=== PATIENT | female | born 1955 | race African-American/Black ===

== ENCOUNTER 2016-12-24 19:06 | Inpatient (IN) | payer OTHER ==
[~2016-12-24] VITALS: Ht 170.2 cm; Wt 81.6 kg
--- NOTE | ~2016-12-24 | DS ---
Unit #: [id number] #: [id number] Patient: KANDY STEINBERG [id number] [address] [address] [id number] I MR#: [id number] NAME: KANDY STEINBERG ROOM: [facility] Age: 61 Sex: F Admission Date: 12/24/2016 : 1955 Discharge Date: Attending Physician: Aaron Knight M.D. Primary Care Physician: [facility]. DISCHARGE SUMMARY DISCHARGE DIAGNOSES 1. Acute on chronic recurrent pancreatitis. 2. Acute kidney injury. 3. Left chest pain from atelectasis. No rib fractures. 4. Chronic diastolic heart failure with ejection fraction 50% to 55%. 5. History of chronic obstructive pulmonary disease. 6. Smoking. 7. Diabetes mellitus type 2, uncontrolled. 8. History of gastritis. 9. Hypertension. 10. History of hepatic steatosis. 11. Constipation. 12. Mild protein malnutrition. CONSULTATIONS None. PROCEDURES None. DIAGNOSTIC STUDIES LABORATORY: Glucose 312, sodium 138, potassium 4.3, creatinine 1.6, albumin 2.8. WBC 10.8, hemoglobin 11.5. IMAGING: X-ray of the left chest area shows atelectasis. No rib fracture. CT of the abdomen and pelvis shows mild acute pancreatitis. No evidence of pseudocyst. No necrosis. ALLERGIES Ibuprofen. DISCHARGE MEDICATIONS 1. Coreg 12.5 p.o. b.i.d. 2. Norvasc 5 mg p.o. b.i.d. 3. Lortab 5 mg q.4 p.r.n. pain. 4. Potassium 20 mEq p.o. daily. 5. Glyburide 10 mg p.o. b.i.d. 6. Colace 100 p.o. b.i.d. [id number] p.r.n. constipation. HOSPITAL COURSE A 61-year-old admitted because of abdominal pain. Abdominal pain likely from acute pancreatitis. She has chronic pancreatitis. Her liver enzymes and amylase and lipase are normal. CT Unit #: [id number] #: [id number] Patient: KANDY STEINBERG shows mild pancreatitis. Currently tolerating diet okay. Continue with low-fat diet at home. I gave a few pills of Lortab. Acute kidney injury likely from dehydration and medications. I am going to hold her lisinopril and Lasix. Follow with PCP. I encouraged her to drink p.o. fluids. Left chest pain likely musculoskeletal. No rib fracture. It shows atelectasis on the x-ray. Constipation. MiraLAX and Colace given. Continue with Colace [id number] at home. DISPOSITION Discharge home. FOLLOWUP With family physician for abdominal pain and pancreatitis. Dictated by... Dannielle Ambrose M.D. KARL/nicole TD: 12/26/2016 14:13 JOB #: [id number] DISCHARGE SUMMARY Page 1 of 1 X Dannielle Ambrose MD X DISCHARGE SUMMARY
--- NOTE | ~2016-12-24 | HP ---
Unit #: [id number] #: [id number] Patient: KANDY STEINBERG [id number] [address] [address] [id number] I MR#: [id number] NAME: KANDY STEINBERG ROOM: [facility] Age: 61 Sex: F Admission Date: 12/24/2016 : 1955 Attending Physician: Aaron Knight M.D. Primary Care Physician: [facility]. HISTORY AND PHYSICAL CHIEF COMPLAINT Abdominal pain. DISCUSSION This is a 61-year-old -Citizen Of [place] female with a past medical history significant for history of type 2 diabetes, recurrent pancreatitis, history of coronary artery disease, diastolic CHF, COPD, gastritis, hypertension, hepatic steatosis, history of cholelithiasis with previous lap cholecystectomy. She presented to emergency room with chief complaint of abdominal pain which she described as she had been having abdominal pain since 25 of October and again it is getting progressively worse and she says she vomited last night and came to the emergency room. Today on workup, found to have white count 16,000, lipase 58. A CT scan consistent with mild pancreatitis and eventually had been admitted. She denies fever, chills, chest pain, cough, shortness of breath, or any other complaint. PAST MEDICAL HISTORY 1. History of diabetes. 2. Hypertension. 3. Recurrent pancreatitis. 4. Active tobacco abuse. 5. COPD. 6. History of coronary artery disease/history of angina status post cath in April 2016. Shows mid RCA 50-60%, OM 70% stenosis. 7. Diastolic CHF, ejection fraction 50-55%. 8. History of gastritis. 9. Hepatic steatosis. PAST SURGICAL HISTORY 1. History of ERCP in the past. 2. Sigmoidoscopy. 3. Colonoscopy. 4. History of cardiac catheterization in April 2016 shows mid RCA 50-60%, OM 70%. 5. History of cholelithiasis, status post lap cholecystectomy in the past. SOCIAL HISTORY She smoked one pack daily. She denies alcohol, she denies illicit drug use. FAMILY HISTORY Remarkable - diabetes in mother. Unit #: [id number] #: [id number] Patient: KANDY STEINBERG ALLERGY No known drug allergy. MEDICATIONS Medication from home is followin. Glucovance 5/500, 2 tablets twice a day. 2. Coreg 12.5 twice a day. 3. Zestril 10 mg daily. 4. Lasix 20 mg daily. 5. Potassium chloride 20 mEq daily. 6. Amlodipine 5 mg daily. REVIEW OF SYSTEMS All review of system negative except History of Present Illness. PHYSICAL EXAMINATION On examination, middle aged female lying in the bed comfortably, currently not in any distress. VITAL SIGNS: Current vitals are following - temperature 98.3, heart rate 82, respiratory rate 18, blood pressure 159/71, oxygen is 100% on room air. GENERAL: On general examination, she is alert, awake, oriented x3, comfortable, not in any distress. HEENT: On HEENT examination, pupils equal, reactive to light and accommodation. Head is normocephalic, atraumatic. NECK: Supple. No JVD, no thyromegaly. LUNGS: Clear to auscultation. No rhonchi, no wheezing. HEART: S1, S2. Regular rate and rhythm. No murmur. ABDOMEN: Soft. Mild upper abdominal tenderness positive. No guarding, no rigidity. EXTREMITIES: Inspection normal. No cyanosis, no clubbing, no edema. NEURO: No focal neurologic deficit. Cranial nerves II-XII intact. Power 5/5 on both sides. SKIN: Warm and dry. PSYCH: Normal mood/affect. DIAGNOSTIC STUDIES LABORATORY: Laboratory workup is following - troponin is less than 0.05. Chemistry - sodium 133, potassium 4.5, chloride 99, glucose 335, BUN 22, creatinine 1.4, albumin 3.2, lipase 58, alkaline phos. 98, otherwise normal LFT. UA negative. White count 16, hemoglobin 12, hematocrit 38, platelets 332. CT scan shows mild pancreatitis. ASSESSMENT AND PLAN 1. Acute on chronic recurrent pancreatitis. Will place the patient on clear liquid diet, IV fluids, IV Protonix, Zofran, morphine for pain control. 2. History of coronary artery disease, nonobstructive, status post cath in April 2016. Shows mid RCA 50-60%, OM 70%. 3. Diastolic CHF with ejection fraction 50-55%. 4. History of COPD with tobacco abuse. 5. Diabetes. Unit #: [id number] #: [id number] Patient: KANDY STEINBERG 6. History of gastritis. 7. Hypertension. 8. Hepatic steatosis. 9. DVT prophylaxis. Will place the patient on Lovenox. Dictated by Frank Smith/musa TD: 12/25/2016 11:54 JOB #: [id number] HISTORY AND PHYSICAL Page 1 of 1 X X HISTORY AND PHYSICAL
--- NOTE | ~2016-12-24 | EKG ---
PATIENT: KANDY STEINBERG UNIT #: [id number] Ventricular Rate: 70 BPM Atrial Rate: 70 BPM P-R Interval: 124 ms QRS Duration: 86 ms Q-T Interval: 392 ms QTC Calculation(Bezet): 423 ms P Dimock: 53 degrees Calculated R Dimock: 10 degrees Calculated T Dimock: 57 degrees Diagnosis Line: Normal sinus rhythm Diagnosis Line: Possible Left atrial enlargement Diagnosis Line: Borderline ECG Diagnosis Line: When compared with ECG of 11-MAY-2016 06:02, Diagnosis Line: No significant change was found Diagnosis Line: Confirmed by FADY MONTIEL MD ([id number]) on Diagnosis Line: 12/25/2016 5:06:57 PM INTERPRETING MD: KAREN
--- NOTE | ~2016-12-24 | CT2 ---
[facility] A Service of [facility] RADIOLOGY TEXT RESULTS PATIENT: KANDY STEINBERG LOCATION: [place] [address] : [birth year] UNIT #: [id number] AGE: [address]: Aaron Knight MD SEX: F ORDER DR: [id number] [place] [id number] [facility]. [place], [place] [address] [id number] I MR#: [id number] Acc #: [id number] NAME: KANDY STEINBERG : 1955 SEX: F STUDY DATE/TIME: 12/24/2016 22:18 UNIT: [facility] ROOM: [facility] STUDY DESCRIPTION: CT Abd and Pelv W Cont Attending Physician: Aaron Knight M.D. Ordering Physician: Raúl Alberts M.D. Primary Care Physician: [facility] MEDICAL IMAGING REPORT This report is preliminary unless electronic signature is present EXAM CT abdomen and pelvis with contrast INDICATIONS Left upper quadrant abdominal pain since October 25, [address]ED[address] Contrast-enhanced CT of the abdomen and pelvis. This CT exam was performed with one or more of the following radiation dose reduction techniques: automatic exposure control, adjustment of mA and/or kV according to patient size, and iterative reconstruction. COMPARISON 12/24/2015 FINDINGS Abdomen with contrast: Included lung bases are clear. Gastroesophageal reflux. The liver, spleen, kidneys, adrenal glands are unremarkable. Previous cholecystectomy. There is haziness and obscuration of fat planes around the head of the pancreas. No peripancreatic fluid collection or evidence for necrosis. Bowel loops are nondilated and appendix is normal. Pelvis with contrast: Previous hysterectomy. No pelvic mass or fluid. No aggressive appearing bone lesion. IMPRESSION Mild acute pancreatitis. Correlate with pancreatic enzyme levels. No evidence for pseudocyst or necrosis. Dictated by... Eder Carballo M.D. [facility] A Service [facility] RADIOLOGY TEXT RESULTS PATIENT: KANDY STEINBERG LOCATION: [facility] : [birth year] UNIT #: [id number] AGE: [address]: Aaron Knight MD SEX: F ORDER DR: THIS IS AN ELECTRONICALLY VERIFIED REPORT Eder Carballo M.D. at 12/26/2016 10:06 PM EED/to TD: 12/25/2016 13:21 JOB #: [id number] MEDICAL IMAGING REPORT Page 1 of 1 COPY
--- NOTE | ~2016-12-24 | CR212 ---
[facility] A Service of [facility] RADIOLOGY TEXT RESULTS PATIENT: KANDY STEINBERG LOCATION: [facility] 558-01 : [birth year] UNIT #: [id number] AGE: [address]: Aaron Knight MD SEX: F ORDER DR: [id number] [facility] [address] [facility]. [place], [place] [address] [id number] I MR#: [id number] Acc #: [id number] NAME: KANDY STEINBERG : 1955 SEX: F STUDY DATE/TIME: 12/25/2016 17:12 UNIT: [facility] ROOM: [facility] STUDY DESCRIPTION: CR Ribs Unilateral 2 View Lt Attending Physician: Aaron Knight M.D. Ordering Physician: Dannielle Amrbose M.D. Primary Care Physician: [facility]. MEDICAL IMAGING REPORT This report is preliminary unless electronic signature is present EXAM PA chest with AP and oblique views of the left ribs. COMPARISON CT abdomen and pelvis dated December 24, 2016, as well as 2 views of the chest dated May 10, 2016. INDICATION 61-year-old female with left-sided rib pain for 2 weeks at which time the patient fell and hit the side of the side of her chest on the edge of pool two weeks ago. FINDINGS No evidence of a pneumothorax. There is no pleural effusion. There are bibasilar opacities which would favor atelectasis given that none were seen on CT abdomen and pelvis performed yesterday. Cardiomediastinal silhouette is within normal limits. No evidence of rib fracture. IMPRESSION No evidence of a rib fracture. Increased bibasilar opacities with -poor inspiratory effort. Given that the lungs were clear on CT abdomen and pelvis performed yesterday, these findings are most consistent with atelectasis. Correlation to exclude signs of pneumonia recommended. Dictated by... Kenny Hi M.D. THIS IS AN ELECTRONICALLY VERIFIED REPORT Kenny Hi M.D. at 01/01/2017 6:36 PM ALYSSA/vikram [facility]. [facility] A Service of [facility] RADIOLOGY TEXT RESULTS PATIENT: KANDY STEINBERG LOCATION: [facility] 558-01 : 57 UNIT #: [id number] AGE: [address]: Aaron Knight MD SEX: F ORDER DR: TD: 12/26/2016 00:22 JOB #: [id number] MEDICAL IMAGING REPORT Page 1 of 1 COPY
[~2016-12-24 19:06] MED LIST: ACETAMINOPHEN PO; ACETAMINOPHEN650 M3 PO; ALBUTEROL20 ml INH; AMLODIPINE BESYL5 MG PO; ATORVASTATIN CA80 MG PO; AVANDIA PO; BAYER CHEWABLE81 MG PO; BENADRYL25 MG PO; BUSPAR5 M1 PO; CARVEDILOL12.5 MG PO; CELEBREX PO; CILOXAN5 ML OP; CLARITIN10 MG PO; COLACE PO; DICLOFENAC PO; GLUCOPHAGE500 M1 PO; GLUCOPHAGE500 MG PO; GLUCOVANCE 5/501 TA1 PO; GLUCOVANCE 5/501 TA2 PO; GLYBURIDE-METFO1 TA4 PO; GLYNASE PO; HYDRALAZINE HCL25 MG PO; HYDROCODON-ACE1 EAC9 PO; INDOMETHACIN50 MG PO; JANUVIA100 MG PO; K-DUR20 ME2 PO; KEFLEX PO; KEFLEX500 M2 PO; KETOROLAC TROMET5 ML OP; LANTUS SOLOSTAR3 ML; LANTUS100 U/ML SUBQ; LASIX20 MG PO; LEVAQUIN PO; LEVEMIR FL100 UNIT/1 SQ; LISINOPRIL20 MG PO; LORTAB 5/500 TA1 TA1 PO; MACROBID100 MG DOB; METFORMIN PO; MIRALAX17 G1 PO; MIRALAX17 GM PO; NICOTINE T1 PATCH .2 TOP; NORCO 5/325 TAB1 TAB PO; NORCO1 TAB 10/3 PO; ONGLYZA5 MG PO; PEPCID AC20 M2 PO; PREDNISONE PO; PRILOSEC PO; PROTONIX PO; PYRIDIUM100 MG PO; REGLAN PO; ROBITUSSIN A-C S5 ML PO; SENNA S TABLET1 TAB PO; ULTRAM PO; VIBRAMYCIN100 M1 PO; VICODIN 5/500 T1 TAB PO; ZESTRIL10 M2 PO; ZITHROMAX1 G/PKT PO; ZOFRAN PO; ZYRTEC10 M2 PO
[2016-12-24 19:48] LABS: BASOPHIL# 0.1 X10e3 (0-0.3); BASOPHIL% 0.9 % (0-2.5); EOSINOPHIL# 0.2 X10e3 (0-0.7); EOSINOPHIL% 1.5 % (0.0-7.0); HEMATOCRIT 38.9 % (35.0-45.0); HEMOGLOBIN 12.7 gm/dL (12.0-16.0); LYMPHOCYTE% 18.7 % (17.0-45.0); MEAN CELL VOLUME 84.9 FL (83-96); MEAN CORPUSCULAR HEMOGLOBIN 27.8 PG (28-34); MEAN CORPUSCULAR HGB CONC 32.7 g/dL (30-36); MEAN PLATELET VOLUME 8.5 FL (6.5-11.5); MONOCYTE# 1.1 X10e3 (0-1.0); MONOCYTE% 6.8 % (3.0-12.0); NEUTROPHIL# 11.6 X10e3 (1.5-7.1); NEUTROPHIL% 72.1 % (40-75); PLATELET COUNT 332 X10e3 (140-420); RED BLOOD COUNT 4.58 X10e (3.90-5.30); RED CELL DISTRIBUTION WIDTH 14.3 % (11.0-15.5); WHITE BLOOD COUNT 16.1 X10e3 (4.0-10.5)
[2016-12-24 19:49] LABS: DIFF IND YES
[2016-12-24 20:01] LABS: URINE SOURCE CLEAN CATCH
[2016-12-24 20:04] LABS: PLATELET ESTIMATE NORMAL (NORMAL); RBC NORMAL YES
[2016-12-24 20:05] LABS: URINE APPEARANCE CLEAR; URINE BILIRUBIN NEG (NEG); URINE BLOOD 1+ (NEG); URINE COLOR YELLOW; URINE GLUCOSE >1000 MG/DL (NEG); URINE KETONE NEG (NEG); URINE LEUKOCYTE ESTERASE NEG (NEG); URINE NITRATE NEG (NEG); URINE PROTEIN 3+ (NEG); URINE SPECIFIC GRAVITY 1.021 (1.003-1.035); URINE UROBILINOGEN 0.2 MG/DL (NEG)
[2016-12-24 20:08] LABS: URINE BACTERIA AUWI NEG (NEGATIVE); URINE SQUAMOUS EPITHELIAL CELL OCC /[HPF]
[2016-12-24 20:10] LABS: ALBUMIN SERUM 3.2 g/dL (3.5-5.0); BILIRUBIN, DIRECT 0.1 mg/dL (0.0-0.2); BILIRUBIN,INDIRECT 0.5 mg/dL (0.0-0.9); BILIRUBIN,TOTAL 0.6 mg/dL (0.2-2.0); BUN/CREATININE RATIO 15.71; CALCIUM SERUM 8.9 mg/dL (8.4-10.2); CREATININE SERUM 1.4 mg/dL (0.6-1.4); GLOM FILT RATE Estimated 47.2 mL/min (>60); POTASSIUM 4.5 mmol/L (3.5-5.1); PROTEIN TOTAL SERUM 7.1 g/dL (6.0-8.3)
[2016-12-24 20:10] LABS: CULTURE INDICATED? NO
[2016-12-24 20:22] LABS: POC - CKMB 1.7 ng/mL (0.0-7.9); POC - TROPONIN <0.05 ng/mL (<=0.05)
[2016-12-24] MEDS ORDERED: K-DUR10 MEQ PO (23:06)
[2016-12-24] MEDS ORDERED: AMLODIPINE BESY10 MG PO (23:07)
[2016-12-24] MEDS ORDERED: GLUCOVANCE 5-51 EACH PO (23:08)
[2016-12-25 06:58] LABS: BASOPHIL# 0.1 X10e3 (0-0.3); BASOPHIL% 0.9 % (0-2.5); EOSINOPHIL# 0.3 X10e3 (0-0.7); EOSINOPHIL% 2.2 % (0.0-7.0); HEMOGLOBIN 11.7 gm/dL (12.0-16.0); LYMPHOCYTE# 3.3 X10e3 (1.0-3.5); LYMPHOCYTE% 26.1 % (17.0-45.0); MEAN CELL VOLUME 84.9 FL (83-96); MEAN CORPUSCULAR HEMOGLOBIN 28.5 PG (28-34); MEAN CORPUSCULAR HGB CONC 33.6 g/dL (30-36); MEAN PLATELET VOLUME 8.1 FL (6.5-11.5); MONOCYTE% 8.1 % (3.0-12.0); NEUTROPHIL# 7.9 X10e3 (1.5-7.1); NEUTROPHIL% 62.7 % (40-75); PLATELET COUNT 285 X10e3 (140-420); RED BLOOD COUNT 4.12 X10e (3.90-5.30); RED CELL DISTRIBUTION WIDTH 14.5 % (11.0-15.5); WHITE BLOOD COUNT 12.7 X10e3 (4.0-10.5)
[2016-12-25 07:04] LABS: DIFF IND NO
[2016-12-25 07:27] LABS: ALBUMIN SERUM 2.8 g/dL (3.5-5.0); ALKALINE PHOSPHATASE 82 U/L (32-92); ALT (SGPT) 9 U/L (10-40); AMYLASE 39 U/L (0-46); AST (SGOT) 9 U/L (10-42); BILIRUBIN,TOTAL <0.1 mg/dL (0.2-2.0); BLOOD UREA NITROGEN 20 mg/dL (9-23); BUN/CREATININE RATIO 14.28; CALCIUM SERUM 8.2 mg/dL (8.4-10.2); CARBON DIOXIDE 24 mmol/L (22-31); CHLORIDE 104 mmol/L (100-111); CREATININE SERUM 1.4 mg/dL (0.6-1.4); GLOM FILT RATE Estimated 47.2 mL/min (>60); GLUCOSE FASTING 257 mg/dL (70-110); LIPASE 35 U/L (22-51); POTASSIUM 4.6 mmol/L (3.5-5.1); PROTEIN TOTAL SERUM 6.3 g/dL (6.0-8.3); SODIUM 134 mmol/L (135-145)
[2016-12-26 07:14] LABS: HEMOGLOBIN 11.5 gm/dL (12.0-16.0); MEAN CELL VOLUME 85.3 FL (83-96); MEAN CORPUSCULAR HGB CONC 32.9 g/dL (30-36); MEAN PLATELET VOLUME 8.3 FL (6.5-11.5); RED BLOOD COUNT 4.1 X10e (3.90-5.30); RED CELL DISTRIBUTION WIDTH 14.3 % (11.0-15.5); WHITE BLOOD COUNT 10.8 X10e3 (4.0-10.5)
[2016-12-26 07:40] LABS: ALBUMIN SERUM 2.8 g/dL (3.5-5.0); BILIRUBIN,TOTAL 0.1 mg/dL (0.2-2.0); BUN/CREATININE RATIO 15.62; CALCIUM SERUM 8.4 mg/dL (8.4-10.2); CREATININE SERUM 1.6 mg/dL (0.6-1.4); GLOM FILT RATE Estimated 40.2 mL/min (>60); POTASSIUM 4.3 mmol/L (3.5-5.1); PROTEIN TOTAL SERUM 6.3 g/dL (6.0-8.3)
[2016-12-26] MEDS ORDERED: LORTAB 5-325 M1 EACH PO (14:00)
[2016-12-26] MEDS ORDERED: GLYBURIDE PO (14:01)
[2016-12-26] MEDS ORDERED: DOCUSATE SODIU100 MG PO (14:01)
== END 2016-12-26 15:13 | disposition home or self-care (01) | DRG 439 ==
LOC: CED 19:06 → CEDOF 23:30 → CED 23:30 → CEDOF 12-25 07:43 → C5B 12-25 07:43
PROVIDERS: Emergency Medicine; Internal Medicine
DX: K85.90 Acute pancreatitis without necrosis or infection, unspecified (principal); N17.9 Acute kidney failure, unspecified; I11.0 Hypertensive heart disease with heart failure; I50.32 Chronic diastolic (congestive) heart failure; E11.65 Type 2 diabetes mellitus with hyperglycemia; J98.11 Atelectasis; E44.1 Mild protein-calorie malnutrition; E86.0 Dehydration; K86.1 Other chronic pancreatitis; F17.200 Nicotine dependence, unspecified, uncomplicated; J44.9 Chronic obstructive pulmonary disease, unspecified; K76.0 Fatty (change of) liver, not elsewhere classified; K59.00 Constipation, unspecified; Z68.28 Body mass index [BMI] 28.0-28.9, adult; R07.89 Other chest pain; Z90.49 Acquired absence of other specified parts of digestive tract
CPT/HCPCS: 36415; 71100; 74177; 80048; 80053; 80076; 81003; 82150; 82553; 82947; 83690; 84484; 85025; 85027; 93005; 94760; 96360; 96372; 99285; C9113; J0500; J1650; J1815; J2270; J2405; Q9967

== ENCOUNTER 2017-01-06 09:04 | Inpatient (IN) | payer OTHER ==
[~2017-01-06] VITALS: Ht 170.2 cm; Wt 88.2 kg
--- NOTE | ~2017-01-06 | A ---
[facility] Nutrition Therapy DATE: 01/07/17 Patient: KANDY STEINBERG Physician: PHIL Address: [address] [place] [address] Room/Bed: [address], Zip: [place] [address] Admit Date: 01/06/17 Date of : 57 Height: 5 7 Weight: 210 95.25 NUTRITIONAL ASSESSMENT: REASON: CONSULT "FEEDING" - DIET EDUCATION PATIENT ADMITED FOR ABDOMINAL PAIN PMH: CAD, HTN, ELIAZAR, CHF, COPD, UNCONTROLLED DM, HX GASTRITIS, CONSTIPATION, HX HEPATIC STEATOSIS Anthropometrics: HT: 67", WT: 209#, BMI: 32.7 Labs: 01/07/17- GLU: 160, 408 (01/06), CA: 8.1, HGBA1C: 12.6 Meds: LEVEMIR, NOVOLOG, MORPHINE, ZOFRAN, NACL I/O & Bowel function: 750/-- LBM: 01/06/17 Skin Integrity: INTACT, SCAR TO ABDOMEN Assessment: PATIENT IS A 61 Y/O FEMALE ADMITTED FOR ABDOMINAL PAIN. SHE WAS D/C'D FROM THIS FACILITY ON 12/26/16 WITH ACUTE ON CHRONIC PANCREATITIS AND SEEMS TO BE BACK FOR THE SAME. PATIENT IS A/O X3 AND SHE SMOKES DAILY. PER MD NOTE, PATIENT HAS "CONSTANT" PAIN IN UPPER ABDOMEN THAT IS EXACERBATED BY EATING AND SHE HAS NOT BEEN TAKING HER MEDICATIONS D/T NOT FEELING WELL. DURING VISIT PATIENT STATED SHE HAS BEEN BATTLING DIABETES FOR 22 YEARS AND HER BODY "IS BREAKING DOWN ON HER". SHE ALSO STATED SHE HAS NOT EATEN IN 5-6 DAYS D/T HER ABDOMINAL PAIN. SHE DOES NOT CHECK HER GLUCOSE LEVELS AT HOME. THIS RD DISCUSSED THE IMPORTANCE OF CHECKING GLUCOSE LEVELS OFTEN, AND MAINTAINING A CONSTANT CARBOHYDRATE DIET AT HOME. PATIENT'S SON WAS ON SPEAKER PHONE DURING THE INTERVIEW. PATIENT DENIED EATING ANY FRIED FOODS, BUT CONTINUED TO SAY SHE EATS FRIED CHICKEN, BOYD, AND FRIED FISH. PATIENT'S LIPID PANEL WAS ABNORMAL. SHE HAS HIGH CHOLESTEROL, TRIGLYCERIDES, AND LDL CHOLESTEROL. PATIENT DID HAVE SOME C/O CONSTIPATION WITH NO N/V. THIS RD ALSO DISCUSSED A LOW FAT DIET WITH PATIENT D/T HER PANCREATITIS AND NUTRITION EDUCATION MATERIALS WERE LEFT AT BEDSIDE. PATIENT IS CURRENTLY ON A CLEAR LIQUID DIET. PATIENT ALSO DENIED ANY RECENT WEIGHT LOSS. Dx: INADEQUATE NUTRIENT INTAKE R/T PANCREATITIS, DM AEB HGBA1C OF 12.6, ABNORMAL LIPID PANEL, ELEVATED GLUCOSE LEVELS Intervention: LOW FAT/CC DIET Monitoring, Evaluation and Goals: 1. ADEQUATE PO INTAKES >50% OF MEALS [facility] Nutrition Therapy DATE: 01/07/17 Patient: KANDY STEINBERG Physician: PHIL Address: [address] [place] [address] Room/Bed: [address] [place] [address], Zip: [place] [address] Admit Date: 01/06/17 Date of : [birth year] Height: 5 7 Weight: 210 95.25 2. LABS; WNL 3. BLOOD GLUCOSE; WNL MONITOR: PER PROTOCOL, WEIGHTS, LABS, I/Os Recommendations: 1. PATIENT CURRENTLY ON CLEAR LIQUID DIET. ONCE DIET ADVANCEMENT MEDICALLY FEASIBLE, RECOMMEND LOW FAT, CC DIET D/T DIAGNOSES RD TO F/U PER PROTOCOL AND PRN R/T PATIENT MILDLY COMPROMISED Respectfully, RUSSELL MARTÍNEZ, RD, LD Food and Nutritional Services [facility] cc: client file
--- NOTE | ~2017-01-06 | HP ---
Unit #: [id number] #: [id number] Patient: KANDY STEINBERG [id number] [place] [address] [facility]. [place], [place] [address] [id number] I MR#: [id number] NAME: KANDY STEINBERG ROOM: [address] Age: 61 Sex: F Admission Date: 01/06/2017 : 1955 Attending Physician: Christal Garrido M.D. Primary Care Physician: [facility] HISTORY AND PHYSICAL CHIEF COMPLAINT Abdominal pain. HISTORY OF PRESENT ILLNESS The patient is a 61-year-old female with past medical history of recurrent pancreatitis, diabetes, hypertension, coronary artery disease, diastolic dysfunction, COPD, gastritis, hepatic steatosis who presented to the emergency department for evaluation of the above. Of note, the patient was hospitalized at [facility] December 24 through December 26, 2016, for acute on chronic recurrent pancreatitis. The patient states that she has had persistent pain since that time. The pain is in the upper abdomen. She describes it as "constant." It is exacerbated by eating. There are no alleviating factors. She has had one bout of nonbloody emesis within the past 24 hours. She denies any diarrhea. She did have an enema yesterday. She had been constipated. She denies any fever. No cough or cold symptoms. In the emergency department, amylase and lipase were noted to be 128 and 129 respectively. Glucose is 408. She was given a total of 2 L of normal saline, 2 mg of morphine, 2 mg of Zofran. Most recent Accu-Chek is 289. The patient states that she has not been taking her medication due to not feeling well. She is being admitted to [facility] for evaluation and further treatment. PAST MEDICAL HISTORY 1. Admission to [facility] December 24 through December 26, 2016 for acute on chronic recurrent pancreatitis. 2. Diastolic dysfunction per the discharge summary dated May 12, 2016. The patient had cardiac catheterization that showed an ejection fraction of 50% to 55%, posterior obtuse marginal 70%, mid RCA 50% to 60%, acute RV branch 90%. The plan per the discharge summary was medical management. 3. Coronary artery disease with cardiac catheterization in April 2016 showing multivessel disease. The plan was medical management. She has seen Dr. Ruano in the past. 4. Hypertension. 5. COPD. 6. Diabetes. 7. Gastritis. 8. Hepatic steatosis. PAST SURGICAL HISTORY 1. Hysterectomy. Unit #: [id number] #: [id number] Patient: KANDY STEINBERG 2. . 3. Cholecystectomy. 4. Cardiac catheterization. 5. ERCP with stent placement and removal. SOCIAL HISTORY The patient continues to smoke a pack of cigarettes daily. There is no alcohol or illicit drug use. FAMILY HISTORY Notable for her mother having diabetes. ALLERGIES Ibuprofen. HOME MEDICATIONS 1. Lisinopril 10 mg daily. 2. Glucovance 5/500 two tablets twice daily. 3. Coreg twice daily unknown dose. 4. Lasix 20 mg daily. 5. Potassium 10 mEq twice daily. 6. Norvasc 5 mg twice daily. REVIEW OF SYSTEMS A complete review of systems is negative except as indicated in the HPI. DIAGNOSTIC STUDIES LABORATORY: Complete blood count notable for white blood cell count of 13.6. Troponin is less than 0.05. Comprehensive metabolic panel notable for sodium of 130 that corrects when glucose of 408 is accounted for. BUN and creatinine 17 and 1.4 respectively. AST and ALT are normal, alkaline phosphatase 100. Amylase and lipase are 128 and 129 respectively. Urinalysis notable for 3+ protein, greater than 1000 glucose, 2+ blood with 5-10 red blood cells. CARDIOVASCULAR: EKG shows normal sinus rhythm with a rate of 75 beats per minute. PHYSICAL EXAMINATION VITAL SIGNS: Temperature 98, pulse 83, respirations 16, blood pressure 154/77, oxygen saturation 100% on room air. GENERAL: The patient is an -[place] female who is awake and alert in no acute distress. HEENT: The head is atraumatic. Mucous membranes are moist. NECK: Supple. Trachea is midline. CARDIOVASCULAR: Regular rate and rhythm. LUNGS: Clear to auscultation bilaterally with no increased work of breathing. ABDOMEN: Soft. She is tender to palpation epigastric area. Bowel sounds are present in all four quadrants. EXTREMITIES: Nontender with no pedal edema. NEUROLOGIC: The patient is awake and alert. She follows commands. PSYCHIATRIC: Mood and affect are normal. The patient is cooperative. SKIN: Skin of examined areas is warm and dry. ASSESSMENT The patient is a 61-year-old female with: 1. Acute on chronic pancreatitis: Amylase and lipase are 128 and 129 Unit #: [id number] #: [id number] Patient: KANDY STEINBERG respectively. 2. Uncontrolled diabetes with initial glucose of 408: The patient received 2 L of normal saline. Most recent Accu-Chek was 289. The patient has not been taking her home Glucovance due to not eating. 3. Leukocytosis: The patient's white blood cell count is 13.6 with no sign of infection. I have not given antibiotics. 4. Hypertension. 5. Coronary artery disease, multivessel noted on cardiac cath in April 2016. The plan is medical management. 6. Diastolic dysfunction with ejection fraction of 50% to 55% noted on cardiac catheterization. 7. Chronic obstructive pulmonary disease with continued tobacco abuse. 8. Gastritis. 9. Hepatic steatosis. PLAN 1. Admit to low-level monitor. 2. Normal saline at 75 mL/hr. 3. NPO except medications. 4. P.r.n. morphine. 5. P.r.n. Zofran. 6. Fasting lipid panel. 7. Serial cardiac enzymes. 8. Hemoglobin A1c. 9. Low-dose sliding scale insulin with Accu-Cheks. 10. Blood cultures x2 for further evaluation of leukocytosis. 11. Chest x-ray for further evaluation of leukocytosis. 12. SCDs for deep venous thrombosis prophylaxis. 13. Repeat labs in the morning including amylase and lipase. 14. Hold lisinopril which could be contributing to pancreatitis. 15. Additional workup and consultants based on above. Dictated by Frank Aaron/donn TD: 01/06/2017 14:01 JOB #: [id number] HISTORY AND PHYSICAL Page 1 of 1 X Christal Garrido MD X HISTORY AND PHYSICAL
--- NOTE | ~2017-01-06 | DS ---
Unit #: [id number] #: [id number] Patient: KANDY STEINBERG [id number] [address] [place], [place] [address] [id number] I MR#: [id number] NAME: KANDY STEINBERG ROOM: 301 Age: 61 Sex: F Admission Date: 01/06/2017 : 1955 Discharge Date: 01/08/2017 Attending Physician: Christal Garrido M.D. Primary Care Physician: [facility]. DISCHARGE SUMMARY FINAL DIAGNOSES Final diagnoses is: 1. Acute on chronic pancreatitis. 2. Uncontrolled diabetes mellitus. 3. Constipation. SECONDARY DIAGNOSES Secondary diagnoses is: 1. Hypertension. 2. COPD. 3. Gastritis. 4. Hepatic steatosis. 5. Coronary artery disease showing multivessel disease. CONSULTS None. HOSPITAL COURSE Patient is a 61-year-old female who was admitted for abdominal pain. She had a recent admission for acute pancreatitis earlier on December 24. She, again, represented and was admitted. Patient was kept NPO and put on a liquid diet with fluids. She improved clinically. She is denying any abdominal pain at this time. She is evaluated, suitable and stable for possible discharge today. Her diet will be advanced, and should she tolerate it, she will be discharged home. Her hemoglobin A1C was 12.6. She was initially started on Levemir 20 units subcu b.i.d.; however, she had (1) hypoglycemic episodes. This was probably related to the fact that she is not eating a diabetic diet at this time. Her Levemir will be cut down to 10 units subcu b.i.d., and she will be give a constant carb diet prior to discharge. She was scheduled to follow up with her PCP in the next 3 to 5 days. She will get diabetic education prior to discharge. MEDICATIONS Medications on discharge include: 1. Levemir 10 units subcu b.i.d. 2. Norvasc 5 mg p.o. b.i.d. 3. Lasix 20 mg p.o. daily. 4. Lisinopril 10 mg p.o. daily. 5. Coreg 12.5 mg p.o. twice daily per home dose. 6. Potassium 10 mEq p.o. b.i.d. per home dose. 7. Glyburide/metformin (Glucovance) 5/500 - 1 tablet p.o. b.i.d. 8. Senokot S 2 tablets p.o. b.i.d. Unit #: [id number] #: [id number] Patient: KANDY STEINBERG DISCHARGE PLAN She will be discharged in stable condition for outpatient followup with her PCP in the next 3 to 5 days. NOTE: Time spent coordinating discharge was about 32 minutes. Dictated by... Frank Ortiz TD: 01/08/2017 15:34 JOB #: [id number] DISCHARGE SUMMARY Page 1 of 1 X Gala Richmond MD X DISCHARGE SUMMARY
--- NOTE | ~2017-01-06 | EKG ---
PATIENT: KANDY STEINBERG UNIT #: [id number] Ventricular Rate: 75 BPM Atrial Rate: 75 BPM P-R Interval: 134 ms QRS Duration: 84 ms Q-T Interval: 392 ms QTC Calculation(Bezet): 437 ms P Leivasy: 49 degrees Calculated R Leivasy: 20 degrees Calculated T Leivasy: 62 degrees Diagnosis Line: Normal sinus rhythm Diagnosis Line: Normal ECG Diagnosis Line: When compared with ECG of 24-DEC-2016 19:59, Diagnosis Line: No significant change was found Diagnosis Line: Confirmed by SHREYAS WILSON MD ([id number]) on Diagnosis Line: 01/06/2017 11:38:42 AM INTERPRETING MD: STEVE HENSLEY
--- NOTE | ~2017-01-06 | CR72 ---
[facility] A Service of [facility] RADIOLOGY TEXT RESULTS PATIENT: KANDY STEINBERG LOCATION: [facility] 301 : 57 UNIT #: [id number] AGE: [address]: Christal Garrido MD SEX: F ORDER DR: [id number] [place], [place] [address] [id number] MR#: [id number] Acc #: [id number] NAME: KANDY STEINBERG : 1955 SEX: F STUDY DATE/TIME: 01/06/2017 13:07 UNIT: CEDOF ROOM: 02991 STUDY DESCRIPTION: CR Chest Single View Portable Attending Physician: Christal Garrido M.D. Ordering Physician: Christal Garrido M.D. Primary Care Physician: [facility]. MEDICAL IMAGING REPORT This report is preliminary unless electronic signature is present EXAM Portable chest HISTORY Shortness breath and abdominal pain for the past 2 weeks. Patient is diabetic. TECHNIQUE Single view of the chest was obtained. COMPARISON 12/25/2016 FINDINGS Cardiomegaly is again noted and unchanged. Both lungs are clear with normal vascular markings. No pleural fluid is seen. No new infiltrates are noted. IMPRESSION Mild cardiomegaly. No active disease. Dictated by... Beto Ochoa M.D. THIS IS AN ELECTRONICALLY VERIFIED REPORT Beto Ochoa M.D. at 01/08/2017 10:57 AM RHONDAF/wei TD: 01/06/2017 17:14 JOB #: [id number] MEDICAL IMAGING REPORT [facility] A Service of [facility] RADIOLOGY TEXT RESULTS PATIENT: KANDY STEINBERG LOCATION: [facility] 301- : 57 UNIT #: [id number] AGE: [address]: Christal Garrido MD SEX: F ORDER DR: Page 1 of 1 COPY
[~2017-01-06 09:04] MED LIST changes: +AMLODIPINE BESY10 MG PO; +DOCUSATE SODIU100 MG PO; +GLUCOVANCE 5-51 EACH PO; +GLYBURIDE PO; +K-DUR10 MEQ PO; +LORTAB 5-325 M1 EACH PO
[2017-01-06 09:50] LABS: BASOPHIL# 0.1 X10e3 (0-0.3); BASOPHIL% 0.8 % (0-2.5); EOSINOPHIL# 0.2 X10e3 (0-0.7); EOSINOPHIL% 1.5 % (0.0-7.0); HEMATOCRIT 38.7 % (35.0-45.0); HEMOGLOBIN 13.1 gm/dL (12.0-16.0); LYMPHOCYTE# 2.8 X10e3 (1.0-3.5); LYMPHOCYTE% 20.3 % (17.0-45.0); MEAN CELL VOLUME 83.5 FL (83-96); MEAN CORPUSCULAR HEMOGLOBIN 28.2 PG (28-34); MEAN CORPUSCULAR HGB CONC 33.8 g/dL (30-36); MEAN PLATELET VOLUME 7.9 FL (6.5-11.5); MONOCYTE% 7.3 % (3.0-12.0); NEUTROPHIL# 9.6 X10e3 (1.5-7.1); NEUTROPHIL% 70.1 % (40-75); PLATELET COUNT 374 X10e3 (140-420); RED BLOOD COUNT 4.64 X10e (3.90-5.30); RED CELL DISTRIBUTION WIDTH 14.3 % (11.0-15.5); WHITE BLOOD COUNT 13.6 X10e3 (4.0-10.5)
[2017-01-06 09:57] LABS: DIFF IND NO
[2017-01-06 10:00] LABS: POC - CKMB 1.6 ng/mL (0.0-7.9); POC - TROPONIN <0.05 ng/mL (<=0.05)
[2017-01-06 10:14] LABS: ALBUMIN SERUM 3.5 g/dL (3.5-5.0); ALKALINE PHOSPHATASE 100 U/L (32-92); ALT (SGPT) 9 U/L (10-40); AMYLASE 128 U/L (0-46); AST (SGOT) 11 U/L (10-42); BILIRUBIN,TOTAL 0.6 mg/dL (0.2-2.0); BLOOD UREA NITROGEN 17 mg/dL (9-23); BUN/CREATININE RATIO 12.14; CALCIUM SERUM 8.6 mg/dL (8.4-10.2); CARBON DIOXIDE 24 mmol/L (22-31); CHLORIDE 98 mmol/L (100-111); CREATININE SERUM 1.4 mg/dL (0.6-1.4); GLOM FILT RATE Estimated 47.2 mL/min (>60); GLUCOSE FASTING 408 mg/dL (70-110); LIPASE 129 U/L (22-51); POTASSIUM 4.3 mmol/L (3.5-5.1); PROTEIN TOTAL SERUM 7.8 g/dL (6.0-8.3); SODIUM 130 mmol/L (135-145)
[2017-01-06 10:16] LABS: BILIRUBIN, DIRECT <0.1 mg/dL (0.0-0.2); BILIRUBIN,INDIRECT 0.5 mg/dL (0.0-0.9)
[2017-01-06 10:37] LABS: URINE SOURCE CLEAN CATCH
[2017-01-06 10:42] LABS: URINE APPEARANCE CLEAR; URINE BILIRUBIN NEG (NEG); URINE BLOOD 2+ (NEG); URINE COLOR YELLOW; URINE GLUCOSE >1000 MG/DL (NEG); URINE KETONE NEG (NEG); URINE LEUKOCYTE ESTERASE NEG (NEG); URINE NITRATE NEG (NEG); URINE PROTEIN 3+ (NEG); URINE SPECIFIC GRAVITY 1.037 (1.003-1.035); URINE UROBILINOGEN 0.2 MG/DL (NEG)
[2017-01-06 10:44] LABS: URINE BACTERIA AUWI NEG (NEGATIVE); URINE SQUAMOUS EPITHELIAL CELL OCC /[HPF]
[2017-01-06 10:47] LABS: CULTURE INDICATED? NO
[2017-01-06] MEDS ORDERED: GLUCOVANCE 5-51 EACH PO (11:18)
[2017-01-06] MEDS ORDERED: LISINOPRIL10 MG PO (11:18)
[2017-01-06] MEDS ORDERED: POTASSIUM CHLO10 MEQ PO (11:19)
[2017-01-06] MEDS ORDERED: COREG12.5 M1 PO (11:19)
[2017-01-06] MEDS ORDERED: LASIX20 MG PO (11:19)
[2017-01-06] MEDS ORDERED: NORVASC PO (11:20)
[2017-01-06 13:16] LABS: CHOLESTEROL 247 mg/dL (0-200); HDL CHOLESTEROL 55 mg/dL (35-95); LDL/HDL RATIO 3 RATIO (0-4); TRIGLYCERIDES 195 mg/dL (10-160)
[2017-01-06 13:17] LABS: LDL CHOLESTEROL 153 mg/dL ([, -130])
[2017-01-06 15:50] LABS: POC - CKMB 1.6 ng/mL (0.0-7.9); POC - TROPONIN <0.05 ng/mL (<=0.05)
[2017-01-07 07:23] LABS: HEMOGLOBIN 11.9 gm/dL (12.0-16.0); MEAN CELL VOLUME 84.9 FL (83-96); MEAN PLATELET VOLUME 7.9 FL (6.5-11.5); RED BLOOD COUNT 4.25 X10e (3.90-5.30); RED CELL DISTRIBUTION WIDTH 14.3 % (11.0-15.5)
[2017-01-07 07:55] LABS: CK TOTAL 58 IU/L (26-140)
[2017-01-07 09:29] LABS: ALBUMIN SERUM 2.9 g/dL (3.5-5.0); ALKALINE PHOSPHATASE 77 U/L (32-92); AMYLASE 46 U/L (0-46); AST (SGOT) 12 U/L (10-42); BLOOD UREA NITROGEN 12 mg/dL (9-23); CALCIUM SERUM 8.1 mg/dL (8.4-10.2); CARBON DIOXIDE 20 mmol/L (22-31); CHLORIDE 108 mmol/L (100-111); CREATININE SERUM 1.1 mg/dL (0.6-1.4); GLOM FILT RATE Estimated 63.2 mL/min (>60); GLUCOSE FASTING 160 mg/dL (70-110); LIPASE 33 U/L (22-51); POTASSIUM 4.3 mmol/L (3.5-5.1); PROTEIN TOTAL SERUM 6.4 g/dL (6.0-8.3); SODIUM 136 mmol/L (135-145)
[2017-01-07 09:30] LABS: ALT (SGPT) <5 U/L (10-40); BILIRUBIN,TOTAL <0.1 mg/dL (0.2-2.0)
[2017-01-07 15:01] LABS: %MB 2.9 % (0.0-4.0)
[2017-01-08 05:40] LABS: HEMATOCRIT 32.8 % (35.0-45.0); HEMOGLOBIN 11.1 gm/dL (12.0-16.0); MEAN CELL VOLUME 85.6 FL (83-96); MEAN CORPUSCULAR HEMOGLOBIN 28.9 PG (28-34); MEAN CORPUSCULAR HGB CONC 33.8 g/dL (30-36); MEAN PLATELET VOLUME 7.9 FL (6.5-11.5); RED BLOOD COUNT 3.83 X10e (3.90-5.30); RED CELL DISTRIBUTION WIDTH 14.2 % (11.0-15.5); WHITE BLOOD COUNT 9.3 X10e3 (4.0-10.5)
[2017-01-08 06:10] LABS: CALCIUM SERUM 7.9 mg/dL (8.4-10.2); GLOM FILT RATE Estimated 70.9 mL/min (>60); POTASSIUM 3.8 mmol/L (3.5-5.1)
[2017-01-08] MEDS ORDERED: LEVEMIR (19:22)
[2017-01-08] MEDS ORDERED: SENNAKOT (19:23)
== END 2017-01-08 21:00 | disposition home or self-care (01) | DRG 440 ==
LOC: CED 09:04 → CEDOF 12:25 → CED 12:45 → CEDOF 12:45 → C3A PCU 23:10 → CEDOF 23:10 → C3A PCU 23:10
PROVIDERS: Emergency Medicine; Family Medicine; Internal Medicine Endocrinology, Diabetes & Metabolism
DX: K85.90 Acute pancreatitis without necrosis or infection, unspecified (principal); E11.649 Type 2 diabetes mellitus with hypoglycemia without coma; K76.0 Fatty (change of) liver, not elsewhere classified; K86.1 Other chronic pancreatitis; Z79.84 Long term (current) use of oral hypoglycemic drugs; K59.00 Constipation, unspecified; I10 Essential (primary) hypertension; J44.9 Chronic obstructive pulmonary disease, unspecified; K29.70 Gastritis, unspecified, without bleeding; I25.10 Atherosclerotic heart disease of native coronary artery without angina pectoris; F17.210 Nicotine dependence, cigarettes, uncomplicated; Z90.49 Acquired absence of other specified parts of digestive tract; Z90.710 Acquired absence of both cervix and uterus; Z83.3 Family history of diabetes mellitus
CPT/HCPCS: 36415; 71010; 80048; 80053; 80061; 80076; 81003; 82150; 82550; 82553; 82947; 83036; 83690; 84484; 85025; 85027; 87040; 93005; 94760; 96361; 96374; 96375; 99285; J1815; J2270; J2405